=== PATIENT | female | born 2005 | race Caucasian/White ===

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

== ENCOUNTER 2025-03-05 22:59 | Emergency (ER) | payer OTHER ==
[~2025-03-05] VITALS: Ht 162.5 cm; Wt 45.4 kg
[2025-03-06] MEDS ORDERED: IBUPROFEN 400 MG TAB PO ONE (00:30)
== END 2025-03-06 01:39 | disposition home or self-care (01) ==
LOC: ED 22:59
DX: J02.0 Streptococcal pharyngitis (principal); Z91.030 Bee allergy status; Z79.899 Other long term (current) drug therapy